=== PATIENT | male | born 1985 | race Hispanic/Latino ===

== ENCOUNTER 2024-06-13 01:05 | Emergency (ER) | payer OTHER ==
[~2024-06-13] VITALS: Ht 182.9 cm; Wt 108.0 kg
[~2024-06-13 01:05] MED LIST: TRAMADOL HCL50 MG OR; TYLENOL500 MG OR
[2024-06-13] MEDS ORDERED: KETOROLAC TROMETHAMINE 30 MG/ML SDV IM ONE (02:20)
[2024-06-13 02:39] LABS: URINE BILIRUBIN - DIPSTICK Negative (NEGATIVE); URINE BLOOD DIPSTICK Negative (NEGATIVE); URINE GLUCOSE - DIPSTICK Negative (NEGATIVE); URINE KETONE Trace mg/dL (NEGATIVE); URINE LEUK ESTERASE Negative (NEGATIVE); URINE NITRITE - DIPSTICK Negative (Negative); URINE PROTEIN - DIPSTICK 100 mg/dL (NEG-TRACE); URINE SPECIFIC GRAVITY >=1.030; URINE UROBILINOGEN - DIPSTICK 0.2 E.U./dL (0.2)
[2024-06-13 02:40] LABS: URINE COLOR Yellow
[2024-06-13 02:46] LABS: URINE MUCUS FEW hpf (NONE-FEW); URINE RBC 0-2 RBC/hpf (0-5)
[2024-06-13 03:42] VITALS: BP 101/65
[2024-06-13] MEDS ORDERED: CYCLOBENZAPRINE10 MG PO (03:56)
[2024-06-13] MEDS ORDERED: NAPROXEN500 MG PO (03:56)
[2024-06-13 04:00] VITALS: BP 108/70
[2024-06-13 04:17] VITALS: BP 108/70
== END 2024-06-13 04:25 | disposition home or self-care (01) | DRG 563 ==
LOC: ED 01:05
PROVIDERS: Family Medicine
DX: S39.012A Strain of muscle, fascia and tendon of lower back, initial encounter (principal); V53.5XXA Driver of pick-up truck or van injured in collision with car, pick-up truck or van in traffic accident, initial encounter